=== PATIENT | female | born 1950 | race Caucasian/White ===

== ENCOUNTER 2016-07-28 02:29 | Day surgery (SDC) | payer MEDICARE, OTHER ==
[2016-07-28] VITALS (19 sets, daily range): BP systolic 89–139; BP diastolic 47–60; PULSE 49–76; RESP 13–20; O2SAT 95–100
[~2016-07-28] VITALS: Ht 154.9 cm; Wt 58.5 kg
[~2016-07-28 02:29] MED LIST: ASPI-973 PO; ATRV10T PO; CHOL400T PO; CHOL400T3 PO; METO25TA6 PO; NITR0.4T SL; OMEG-38 PO; UBID100C25 PO
[2016-07-28] MEDS ORDERED: 0.9% Sodium Chloride 1,000 ML ONE ×2 (08:57→09:52)
[2016-07-28] MEDS ORDERED: Heparin 1,000 Unit/mL 10 mL Inj ONE ×2 (09:13→09:52)
[2016-07-28] MEDS ORDERED: Phenylephrine/NS-PF 100 mCg/mL 5 mL Syringe IVPUSH ONE ×3 (09:13→13:19)
[2016-07-28] MEDS ORDERED: 0.9% Sodium Chloride 500 ML ONE (09:13)
[2016-07-28] MEDS ORDERED: Heparin 5,000 Units/500 mL NS Premix IV ONE (09:14)
[2016-07-28] MEDS ORDERED: fentaNYL-PF 50 mCg/mL 2 mL Inj ONE ×2 (09:28→11:34)
[2016-07-28] MEDS ORDERED: Nitroglycerin 50,000 mcg/250 mL D5W Premix IV ONE (09:41)
[2016-07-28] MEDS ORDERED: Abciximab Bolus 2 mg/mL 5 mL Inj ONE ×2 (10:58→11:01)
[2016-07-28] MEDS ORDERED: 0.9% Sodium Chloride 1,000 ML IV SCH (12:20)
[2016-07-28] MEDS ORDERED: Atropine 1 mg/10 mL (Code) Syringe ONE (13:16)
[2016-07-28] MEDS ORDERED: Ondansetron 2 mg/mL 2 mL Inj ONE (13:16)
[2016-07-28] MEDS ORDERED: Lidocaine 1%-Epi 1:100,000 20 mL Inj ONE (13:20)
--- NOTE | 2016-07-28 13:44 | NUR ---
At 13:15 patient called that she felt nauseated. She appears pale and her forehead feels moist to touch. Pt placed trendelenberg, emesis basin made available, turned slightly onto her side and other R.N's alerted for help and to call Dr Grant and pathology laboratory aide personnel stat.Pt given Zofran 4 mg iv, with quick resolution of nausea, Dr Grant at bedside. phenylephrine 100 mcg iv given for BP89/54 with quick rebound of bp. Pt's NS had been turned up to 999cc/he on pump. Gauze at groin completely saturated, possible small spot under puncture site with possible firmness.Weston from pathology laboratory aide quickly took over groin management by applying manual compression. pt returned to baseline within 10 minutes, pt left in trendelenberg x 15minutes and now flat.Dr Grant also injected groin with lid/epi for continuous ooze and gauze is now dry.Pt's called back to bedside, pt states she feels improved and to her baseline.
--- NOTE | 2016-07-28 15:37 | NUR ---
pt transfer to room 2028 Pt had stable recovery after heart cath with PCI in POLO, groin site soft non tender. family made aware of transfer, report given to Efraín Avery. Pt transported with personal belongings to rm 2028.
[2016-07-28] MEDS ORDERED: Atropine 1 mg/10 mL (Code) Syringe IVPUSH PRN (17:40)
[2016-07-28] MEDS ORDERED: Sodium Chloride LOK Flush 10 mL Syringe IVFLUSH PRN (17:40)
[2016-07-28] MEDS ORDERED: Ondansetron 2 mg/mL 2 mL Inj IVPUSH PRN (17:40)
[2016-07-28] MEDS ORDERED: HYDROcodone-APAP 5-325 mg Tablet PO PRN (17:40)
[2016-07-28] MEDS ORDERED: 0.9% Sodium Chloride 250 ML BOLUS IV PRN (17:40)
[2016-07-28] MEDS ORDERED: 0.9% Sodium Chloride 800 ML IV ONE (17:40)
--- NOTE | 2016-07-28 19:15 | NUR ---
Arrived to unit Pt arrived to [facility] room 2028 at ~1545 from [facility]. Pt denied pain, A&Ox3, VSS on RA. Pt's groin site dressing had minor sanguineous oozing present which had been ongoing per [facility] staff, Pt's groin site otherwise stable. Pt off bedrest at ~1630, ambulated to the BR, groin site had additional oozing, but otherwise remained unchanged. Pt to have NS at 100mL/Hr until 1930, oncoming NOC RN made aware.
--- NOTE | 2016-07-28 20:05 | CS94 ---
[address] [address] DIAGNOSTIC CARDIAC CATHETERIZATION PATIENT: THIERRY PACK : 1950 MR#: [id number] ADMIT: 07/28/2016 JOB ID: [id number] SERVICE DATE: 07/28/2016 PROCEDURES PERFORMED: 1. Coronary angiography. 2. Intravascular ultrasound of the right coronary artery. 3. Percutaneous intervention with stent placement in the right coronary artery. INDICATIONS: A 66-year-old woman with progressive dyspnea on exertion and abnormal stress test. She has known coronary artery disease as well. She presents for further assessment by cardiac catheterization. DESCRIPTION OF PROCEDURE: Informed consent was obtained. The patient was brought to the catheterization laboratory. Bilateral groins were prepped and draped in usual sterile fashion. The area over the right femoral artery was anesthetized with lidocaine. Using a micropuncture kit and modified Seldinger technique, access was obtained and a 5-Algerian sheath was advanced. A 5-Algerian JL4 catheter was advanced over a wire and used to cannulate the left coronary and angiographic views obtained. This catheter was removed and a 5-Algerian JR4 catheter was used to cannulate the right coronary artery and angiographic views obtained. Given findings of very high-grade stenosis in the distal right coronary artery estimated in the range of 95%, intervention was planned. The current 5-Algerian sheath exchanged out for a 6-Algerian sheath. Next, a 6-Algerian no torque guide was advanced over the wire and used to cannulate the right coronary artery. Heparin was given for anticoagulation. ACT was therapeutic throughout the case. An initial Prowater wire was advanced across the area of stenosis and additional attempts at passing a wire to the extension branch were not successful until balloon dilation x1 with a 2 mm balloon was performed. This allowed then passage of an additional wire which went into the left ventricular extension branch. The 2 mm balloon was inflated up to as high as 10 atmospheres in the area of interest. The IVUS catheter was passed. This would not advance into the PDA given a significant plaque, however, the vessel was assessed at that juncture. There appears to be significant calcification, significant plaque, the vessel appearing in the range of 2-2.25 mm. As the vessel goes more proximal, the vessel appeared more in the range of 2.5 mm. The 2.0 12 balloon was again advanced to the area stenosis to do higher inflations up to 13 atmospheres. Given the desire to place a drug-eluting stent, plans were made to dilate higher so a 2.25 mm balloon was advanced to the area of interest and inflated up to 13 atmospheres. A 20 mm balloon was advanced just for sizing purposes and ultimately a 2.25 x 22 mm Resolute drug-eluting stent was advanced to the area stenosis. This was carefully placed to extend into the PDA, as it was felt it would have to cross over the bifurcation given the extension of plaque beyond the bifurcation. After this was placed, the stent was deployed up to 10 atmospheres. The delivery balloon was removed. An IVUS was advanced to the stented area. This revealed that the stent was well expanded but could be expanded a little more to achieve a more optimal inflation. In one dimension it appeared 2.25 and in another appeared closer to 2, therefore the 2.25 noncompliant balloon was advanced to the area of stenosis and this was inflated up to 10 atmospheres. The post dilations were not performed in the area of the bifurcation to avoid any additional plaque shift into the left extension branch. After stenting, this gave an excellent angiographic result with brisk flow in the PDA as well as the extension branch. There is some pinching of the ostium of the extension branch but, again, brisk flow was noted into that vessel. Wires and balloons were removed and the case was ended. An angiographic view of the right femoral access site was reviewed prior to achieving hemostasis with a StarClose device. There were no complications. FINDINGS: CORONARIES: 1. Left main. This does have some mild disease as it continues down to about 15%. 2. Left anterior descending artery. This vessel has mild luminal irregularities in its proximal segment. In the mid segment, it tapers down to match the remainder of the vessel to about 40%. The vessel continues down and wraps around the apex becoming quite small at the apical segments. There is a diagonal branch which supplies an intermediate distribution; it is a branching vessel which appears to have no obstructive disease. 3. Right coronary artery. This vessel has diffuse disease. There is evidence for calcification. The disease in the mid conduit segment appears [id number]. The disease in the distal proximal conduit segment into the mid conduit segment appears in the range of [id number]. Just prior to the branching of the extension branch and the PDA, there is significant plaque. This plaque extends beyond the bifurcation. There is no significant ostial disease appreciated affecting the left ventricular extension branch. There is evidence for some collateralization to the distal right via right to right coronary collaterals. As noted, the vessel was ultimately double wired, it was pre-dilated with 2 and then 2.25 mm balloon. IVUS was used to assess the vessel which showed it to be closest to 2-2.25 mm in size with the PDA becoming quite small, closer to the range of 2 mm in size. Ultimately, a 2.25 x 22 mm Resolute drug-eluting stent was advanced and this was deployed at nominal pressures. This was also post dilated at higher atmospheres in the more proximal portions of the stent with a noncompliant balloon. After stenting, this gave an excellent angiographic result with brisk flow in both the PDA and left extension branches. There is some pinching of the ostium of the left extension branch related to the stent, however, the flow in that vessel is quite brisk. The left ventricular extension branch is relatively small in caliber and appears to have somewhat diffuse disease. HEMODYNAMICS: During the case include aortic pressures in the range of 120s to 140s with heart rates in the 70s. MEDICATIONS GIVEN IN THE CASE: Include heparin for anticoagulation, sedation as per record. Patient also given a prasugrel loading dose at the end of the case as well as a ReoPro bolus x1 after the groin was felt to be safe. IMPRESSION: 1. Evidence for progression of disease in the distal right coronary artery successfully treated with a balloon dilation, assessed with IVUS, and stented with a 2.25 x 22 mm Resolute drug-eluting stent. 2. Otherwise stable coronary disease in this patient. MTDD
[2016-07-29 03:09] VITALS: BP 132/63; PULSE 59; RESP 16; O2SAT 97
[2016-07-29 03:38] VITALS: PULSE 68
[2016-07-29 04:06] LABS: Mean Corpuscular Hemoglobin 29.2 pg (27.0-35.0); Mean Corpuscular Volume 94.3 fL (81-100)
--- NOTE | 2016-07-29 06:27 | NUR ---
Groin Site Oozing/Cardiac At change of shift groin site assessed w/ day RN, gauze under Tegaderm was saturated w/ sanguineous drainage. Groin site assessed together and was soft w/out signs of hematoma. New dressing applied, pt instructed to return to bed rest for the time being. When reassessed pt's dressing saturated again, dressing replaced and sandbag used for pressure, when this didn't work pressure was applied manually x2. copyholder helped with manual pressure and also assessed site for any signs of hematoma. After second time of manual pressure, oozing stopped. With frequent reassessments, groin site remains soft, without oozing, pedal pulse palpable. Pt remained bedrest tonight. Pt denied any chest pain/nausea/SOB. Tele SR high 50s-60s.
[2016-07-29 08:00] VITALS: PULSE 64
[2016-07-29 08:30] VITALS: BP 129/67; PULSE 73; RESP 16; O2SAT 97
[2016-07-29] MEDS ORDERED: CLOP75TA28 PO (10:15)
--- NOTE | 2016-07-29 12:15 | NUR ---
Discharge Pt's groin site stable with no visible drainage on dressing. Pt ambulated a lap around unit with RN and groin site remained free from new visible drainage/palpable hematoma after ambulation. Pt denied SOB/pain during ambulation. Pt discharged to home with family at ~1045 today. Pt given discharge educational materials on post-cardiac cath groin site care and angioplasty/stent booklet. Pt's IV access D/C'd and intact X2. Pt instructed to f/u with cardiology, appointment made for 08/09/16 with [facility] at 1220, phone number provided. Pt verbalized understanding of all discharge instructions. All belongings accompanied Pt at time of discharge.
== END 2016-07-29 12:20 | disposition home or self-care (01) ==
LOC: SOUO 02:29 → PCC 15:39 → SOUO 07-29 12:20
PROVIDERS: ATTEND Internal Medicine
DX: I25.10 Atherosclerotic heart disease of native coronary artery without angina pectoris (principal); Z79.82 Long term (current) use of aspirin; E78.5 Hyperlipidemia, unspecified; Z85.3 Personal history of malignant neoplasm of breast
CPT/HCPCS: 36415; 80048; 85027; 92978; 93005; 93454; 99152; 99153; C1725; C1753; C1760; C1769; C1874; C1887; C9600; J0130; J1200; J1644; J2250; J2370; J2405; J3010; J7030; J7040; Q9967